=== PATIENT | female | born 1975 | race Caucasian/White ===

== ENCOUNTER 2023-11-08 05:37 | Inpatient (IN) | payer MEDICAID ==
[~2023-11-08] VITALS: Ht 162.6 cm; Wt 77.3 kg
[2023-11-08 06:22] LABS: ALANINE AMINOTRANSFERASE 20 U/L (12-78); ALBUMIN 3.6 G/DL (3.4-5.0); ALBUMIN/GLOBULIN RATIO 0.8 (1.1-1.5); ALKALINE PHOSPHATASE 56 IU/L (46-116); ANION GAP 6 (8-16); ASPARTATE AMINO TRANSFERASE 23 U/L (10-37); BILIRUBIN,TOTAL 1.3 MG/DL (0.1-1.0); BLOOD UREA NITROGEN 17 MG/DL (7-18); BUN/CREATININE RATIO 16.8 (10.0-20.0); CALCIUM 8.7 MG/DL (8.5-10.1); CHLORIDE 103 MMOL/L (99-107); CREATININE 1.01 MG/DL (0.40-0.90); GLUCOSE 115 MG/DL (70-104); POTASSIUM 3.6 MMOL/L (3.5-5.1); SODIUM 139 MMOL/L (135-145); TOTAL CARBON DIOXIDE 30.1 MMOL/L (24-32); TOTAL PROTEIN 7.9 G/DL (6.4-8.2); eCRCL 58 ML/MIN; eGFR 58 ML/MIN
[2023-11-08 06:30] LABS: PRO BRAIN NATRIURETIC PEPTIDE < 30 PG/ML (0-125)
[2023-11-08 06:32] LABS: BASOPHILS % (AUTO) 0.4 % (0-1); EOSINOPHILS # (AUTO) 0.2 X10'3 (0-0.9); EOSINOPHILS % (AUTO) 3.9 % (0-6); HEMATOCRIT 41.9 % (35.0-45.0); HEMOGLOBIN 13.7 g/dl (12.0-16.0); LYMPHOCYTES # (AUTO) 1.9 X10'3 (1.1-4.8); LYMPHOCYTES % (AUTO) 36.4 % (21-51); MEAN CORPUSCULAR HEMOGLOBIN 27.8 PG (27.0-31.0); MEAN CORPUSCULAR HGB CONC 32.8 g/dL (33.0-36.5); MEAN CORPUSCULAR VOLUME 84.7 FL (78-98); MEAN PLATELET VOLUME 10.3 FL (7.4-10.4); MONOCYTES # (AUTO) 0.4 X10'3 (0-0.9); MONOCYTES % (AUTO) 8.4 % (2-12); NEUTROPHILS # (AUTO) 2.6 X10'3 (1.8-7.7); NEUTROPHILS % (AUTO) 50.9 % (42-75); PLATELET COUNT 254 X10'3 (140-440); RED BLOOD COUNT 4.94 X10'6 (4.20-5.60); RED CELL DISTRIBUTION WIDTH 14.9 % (11.5-14.5); WHITE BLOOD COUNT 5.1 X10'3 (4.5-11.0)
[2023-11-08] MEDS: normal saline 1000ML IV soln IVB ONE (08:00)
[2023-11-08] MEDS: aspirin 325mg tablet, delayed-release (Ecotrin) PO ONE (08:03)
[2023-11-08] MEDS: LORazepam 2 mg/ml vial IV ONE ×2 (08:14→15:53)
[2023-11-08 08:16] LABS: D-DIMER 0.39 MG/L FEU (0-0.50)
[2023-11-08 09:42] LABS: URINE AMPHETAMINE SCREEN POSITIVE (Neg); URINE BARBITUATE SCREEN NEGATIVE (Neg); URINE BENZODIAZEPINES SCREEN NEGATIVE (Neg); URINE CANNABINOID SCREEN POSITIVE (Neg); URINE COCAINE SCREEN NEGATIVE (Neg); URINE METHADONE SCREEN NEGATIVE (Neg); URINE OPIATE SCREEN NEGATIVE (Neg); URINE PHENCYCLIDINE SCREEN NEGATIVE (Neg)
[2023-11-08 11:17] LABS: APTT 28 SECONDS (22-32); PROTHROMBIN TIME 9.9 SECONDS (9.0-12.0)
[2023-11-08 11:18] LABS: INR 0.9 INR
[2023-11-08] MEDS: heparin 10,000 units/1 ML INJ IV ONE (11:47)
[2023-11-08] MEDS ORDERED: magnesium hydroxide 30ml (MOM) UD suspension PO PRN (11:50)
[2023-11-08] MEDS ORDERED: mag hydrox/Alum hydrox/simeth 30ml oral suspension PO PRN (11:50)
[2023-11-08] MEDS ORDERED: potassium Cl 40MEQ/1/2NS 520ml 520 ML IV PRN (11:50)
[2023-11-08] MEDS ORDERED: magnesium 2GM in 50ml NS 50 ML IV PRN (11:50)
[2023-11-08] MEDS ORDERED: magnesium 4gm in 100ml NS 100 ML IV PRN (11:50)
[2023-11-08] MEDS ORDERED: magnesium Cl slow-release 64mg tablet PO PRN (11:50)
[2023-11-08] MEDS ORDERED: ondansetron/PF 4mg/2ml inj IV PRN (11:50)
[2023-11-08] MEDS ORDERED: morphine 2 MG/ML inj. syringe IV PRN (11:50)
[2023-11-08] MEDS ORDERED: potassium Cl 20 mEq SR tablet PO PRN ×2 (11:50)
[2023-11-08] MEDS: heparin 25,000 UNIT/250ml bag 250 ML IV PRN (11:55)
[2023-11-08] MEDS: PERFLUTREN PROTEIN-A MICROSPHR (Optison) 0.22 MG/ML 3ML VIAL IV ONE (11:56)
[2023-11-08] MEDS ORDERED: nitroGLYCERIN 0.4mg SUBLingual tab SL PRN (12:20)
[2023-11-08 13:42] LABS: MAGNESIUM 2.2 MG/DL (1.5-2.4)
[2023-11-08 13:47] LABS: HEMOGLOBIN A1C 5.5 % (4.5-6.2)
[2023-11-08] MEDS: atorvastatin 20mg tablet PO SCH (14:06)
[2023-11-08] MEDS: carVEDilol 3.125mg tablet PO SCH (14:07)
[2023-11-08 15:20] VITALS: BP 116/80; PULSE 85; RESP 16; TEMP 98.1; O2SAT 98
[2023-11-08] MEDS ORDERED: temazepam 15mg capsule PO PRN (15:30)
[2023-11-08] MEDS: MESSAGE TO NURSING IV ONE ×2 (16:19→22:05)
[2023-11-08 20:00] VITALS: BP 111/76; PULSE 82; RESP 16; TEMP 97.6; O2SAT 97
[2023-11-08] MEDS: K and/or MAG REPLACEMENT MC SCH (20:00)
[2023-11-08 21:03] LABS: APTT 26 SECONDS (22-32)
[2023-11-08] MEDS: docusate sod 100mg capsule PO SCH (21:13)
[2023-11-08] MEDS: heparin 10,000 units/1 ML INJ IV PRN (21:55)
[2023-11-09] VITALS (8 sets, daily range): BP systolic 103–115; BP diastolic 69–74; PULSE 74–89; RESP 11–22; TEMP 97–98.5; O2SAT 94–100
[2023-11-09 05:12] LABS: ALBUMIN 2.9 G/DL (3.4-5.0); ANION GAP 8 (8-16); BLOOD UREA NITROGEN 13 MG/DL (7-18); BUN/CREATININE RATIO 16.3 (10.0-20.0); CALCIUM 8.1 MG/DL (8.5-10.1); CHLORIDE 103 MMOL/L (99-107); CHOL/HDL RATIO 1.9 (0.00-4.99); CHOLESTEROL 132 MG/DL (0-200); GLUCOSE 107 MG/DL (70-104); HDL CHOLESTEROL 69 MG/DL (35-60); LDL CHOLESTEROL 51 MG/DL (50-100); MAGNESIUM 1.8 MG/DL (1.5-2.4); POTASSIUM 4.1 MMOL/L (3.5-5.1); SODIUM 138 MMOL/L (135-145); TOTAL CARBON DIOXIDE 26.7 MMOL/L (24-32); TRIGLYCERIDES 52 MG/DL (20-135); eCRCL 73 ML/MIN; eGFR 76 ML/MIN
[2023-11-09] MEDS: MESSAGE TO NURSING IV ONE ×2 (05:20→20:15)
[2023-11-09 05:23] LABS: BASOPHILS % (AUTO) 0.2 % (0-1); EOSINOPHILS # (AUTO) 0.3 X10'3 (0-0.9); EOSINOPHILS % (AUTO) 4.7 % (0-6); HEMOGLOBIN 12.6 g/dl (12.0-16.0); LYMPHOCYTES # (AUTO) 2.4 X10'3 (1.1-4.8); LYMPHOCYTES % (AUTO) 36.5 % (21-51); MEAN CORPUSCULAR HEMOGLOBIN 27.9 PG (27.0-31.0); MEAN CORPUSCULAR HGB CONC 33.1 g/dL (33.0-36.5); MEAN CORPUSCULAR VOLUME 84.3 FL (78-98); MEAN PLATELET VOLUME 10.7 FL (7.4-10.4); MONOCYTES # (AUTO) 0.6 X10'3 (0-0.9); MONOCYTES % (AUTO) 9.9 % (2-12); NEUTROPHILS # (AUTO) 3.2 X10'3 (1.8-7.7); NEUTROPHILS % (AUTO) 48.7 % (42-75); PLATELET COUNT 253 X10'3 (140-440); RED CELL DISTRIBUTION WIDTH 14.7 % (11.5-14.5); WHITE BLOOD COUNT 6.5 X10'3 (4.5-11.0)
[2023-11-09] MEDS ORDERED: acetaminophen 325mg tablet PO PRN (11:35)
[2023-11-09] MEDS: acetaminophen 325mg tablet PO PRN (12:08)
[2023-11-09] MEDS: LORazepam 2 mg/ml vial IV PRN (20:27)
[2023-11-10 02:55] VITALS: BP 96/61; PULSE 67; RESP 14; TEMP 98.1; O2SAT 97
[2023-11-10] MEDS: MESSAGE TO NURSING IV ONE ×2 (04:25→07:25)
[2023-11-10 06:00] VITALS: BP 114/72; PULSE 80; RESP 17; TEMP 97.7; O2SAT 96
[2023-11-10 07:59] LABS: BASOPHILS # (AUTO) 0.1 X10'3 (0-0.2); EOSINOPHILS # (AUTO) 0.3 X10'3 (0-0.9); EOSINOPHILS % (AUTO) 4.5 % (0-6); HEMATOCRIT 41.7 % (35.0-45.0); HEMOGLOBIN 13.5 g/dl (12.0-16.0); LYMPHOCYTES # (AUTO) 2.2 X10'3 (1.1-4.8); LYMPHOCYTES % (AUTO) 31.3 % (21-51); MEAN CORPUSCULAR HEMOGLOBIN 27.6 PG (27.0-31.0); MEAN CORPUSCULAR HGB CONC 32.4 g/dL (33.0-36.5); MEAN CORPUSCULAR VOLUME 85.1 FL (78-98); MEAN PLATELET VOLUME 11.1 FL (7.4-10.4); MONOCYTES # (AUTO) 0.6 X10'3 (0-0.9); MONOCYTES % (AUTO) 7.9 % (2-12); NEUTROPHILS # (AUTO) 3.9 X10'3 (1.8-7.7); NEUTROPHILS % (AUTO) 55.3 % (42-75); PLATELET COUNT 200 X10'3 (140-440); RED CELL DISTRIBUTION WIDTH 14.7 % (11.5-14.5)
[2023-11-10 08:01] LABS: ALBUMIN 3.1 G/DL (3.4-5.0); ANION GAP 11 (8-16); BLOOD UREA NITROGEN 13 MG/DL (7-18); BUN/CREATININE RATIO 17.6 (10.0-20.0); CALCIUM 8.4 MG/DL (8.5-10.1); CHLORIDE 102 MMOL/L (99-107); CREATININE 0.74 MG/DL (0.40-0.90); GLUCOSE 125 MG/DL (70-104); MAGNESIUM 1.9 MG/DL (1.5-2.4); POTASSIUM 3.9 MMOL/L (3.5-5.1); SODIUM 137 MMOL/L (135-145); TOTAL CARBON DIOXIDE 24.5 MMOL/L (24-32); eCRCL 79 ML/MIN; eGFR 83 ML/MIN
[2023-11-10] MEDS: aspirin 81mg tab.chew PO SCH (09:57)
[2023-11-10] MEDS ORDERED: ATOR20TA66 PO (10:06)
[2023-11-10] MEDS ORDERED: ASPI81TA53 PO (10:06)
[2023-11-10] MEDS ORDERED: COR3.125T PO (10:06)
[2023-11-10] MEDS ORDERED: NITR0.4T51 SL (10:06)
== END 2023-11-10 11:12 | disposition home or self-care (01) | DRG 812 ==
LOC: ER 05:37 → ED HOLD 11:53 → PCU 3S 15:20
PROVIDERS: ADMIT Family Medicine; ATTEND Family Medicine
DX: T43.651A Poisoning by methamphetamines accidental (unintentional), initial encounter (principal); I21.4 Non-ST elevation (NSTEMI) myocardial infarction; E86.0 Dehydration; F15.10 Other stimulant abuse, uncomplicated; F12.10 Cannabis abuse, uncomplicated; Y92.89 Other specified places as the place of occurrence of the external cause; Z82.0 Family history of epilepsy and other diseases of the nervous system
CPT/HCPCS: 36415; 71045; 80048; 80053; 80061; 80305; 83036; 83735; 83880; 84484; 85025; 85379; 85610; 85730; 87081; 93005; 93306; 96374; 96375; 99291; G0378; J1644; J2060; J7030